=== PATIENT | female | born 1985 | race Caucasian/White ===

== ENCOUNTER 2021-07-02 04:57 | Inpatient (IN) | payer OTHER, SELFPAY ==
[2021-07-02] VITALS (140 sets, daily range): BP systolic 82–118; BP diastolic 45–80; PULSE 25–201; RESP 16–20; TEMP 36.4–36.9; O2SAT 69–100; BMI 32.3
--- NOTE | 2021-07-02 05:32 | LDADM ---
This patient, Michelle Lam, was admitted to Labor/Delivery/Recovery 106 on 07/02/21 at 04:57. Plans for labor, pain management and were discussed with patient. Patient/family oriented to hospital policies and general routines including ID bracelet, bed and alarms, visiting hours, pain management, procedures, bathroom and other care routines, personal items, smoking policy, room service/diet and guest tray routines, security routines, and visiting hours. Patient/Family are encouraged to report perceived risks to care and to ask questions if they do not understand what they are told or what they should do. See OBIX for further documentation.
[2021-07-02 05:44] LABS: Basophils Percent Auto 0.3 % (0.2-1.2); Eosinophils Absolute Auto 0.1 K/mm3 (0-0.3); Eosinophils Percent Auto 0.9 % (0-4.4); Hematocrit 36.4 % (37.0-47.0); Hemoglobin 12.4 g/dL (12.0-15.0); Immature Granulocyte Absolute 0.08 K/mm3 (0.00-0.031); Immature Granulocyte Percent A 0.6 % (0-0.5); Lymphocytes Absolute Auto 2.36 K/mm3 (0.9-3.2); Lymphocytes Percent Auto 19.1 % (18.3-44.2); Mean Corpuscular HGB Conc 34.1 g/dl (32-36); Mean Corpuscular Hemoglobin 32.2 pg (26-34); Mean Corpuscular Volume 94.5 fl (80-100); Mean Platelet Volume 10.2 fl (7.4-10.4); Monocytes Percent Auto 8.2 % (2.6-8.5); Neutrophils Absolute Auto 8.7 K/mm3 (1.3-6.7); Neutrophils Percent Auto 70.9 % (45.5-73.1); Platelet Count Result 223 k/mm3 (150-375); Red Blood Count 3.85 M/mm3 (4.2-5.4); Red Cell Distribution Width 12.3 % (11.5-14.5); White Blood Count 12.3 K/mm3 (4.5-10.0)
[2021-07-02] MEDS: LACTATED RINGERS 1,000 ML 125 ML IV CONT ×2 (05:46→13:23)
[2021-07-02] MEDS: AMPICILLIN 2 GM/NS 100 ML 2 GM/100 ML BAG IVPB (05:47)
[2021-07-02] MEDS: OXYTOCIN 30 UNITS/NS 500 ML 30 UNITS/500 ML BAG IV CONT (05:47)
[2021-07-02 06:24] LABS: Rapid Plasma Reagin Non-Reactive (NonReactive)
--- NOTE | 2021-07-02 08:28 | WPDANESEPP ---
Anes - Eval Pre Procedure Procedure: Labor epidural Date/Time: 07/02/21 08:28 Surgeon: Elidia Preop Diagnosis: Abd pain with contractions Pre Op Diagnosis: IOL Patient Data Age: 36 Gender: F Height: 1.63 m Weight: 85.4 kg Last Vital Signs Temp 98.1 F 07/02/21 05:29 Pulse 94 07/02/21 08:01 Resp 20 07/02/21 05:29 BP 112/78 07/02/21 08:01 Allergies Allergy/AdvReac Type Severity Reaction Status Date / Time No Known Allergies Allergy Verified 06/09/21 15:34 Home Medications Medication Instructions Recorded Confirmed Type cetirizine [Zyrtec] 10 mg PO DAILY 06/09/21 06/09/21 History prenat.vits,artis,apx-[id number]-xwska 1 tablet PO DAILY 06/09/21 06/09/21 History [ #2] Laboratory Tests 07/02/21 07/02/21 07/02/21 05:26 05:26 05:26 WBC 12.3 K/mm3 H K/mm3 (4.5-10.0) RBC 3.85 M/mm3 L M/mm3 (4.2-5.4) Hgb 12.4 g/dL g/dL (12.0-15.0) Hct 36.4 % L % (37.0-47.0) MCV 94.5 fl fl (80-100) MCH 32.2 pg pg (26-34) MCHC 34.1 g/dl g/dl (32-36) RDW 12.3 % % (11.5-14.5) Plt Count 223 k/mm3 k/mm3 (150-375) MPV 10.2 fl fl (7.4-10.4) Immature Gran % (Auto) 0.6 % H % (0-0.5) Neut % (Auto) 70.9 % % (45.5-73.1) Lymph % (Auto) 19.1 % % (18.3-44.2) [place] % (Auto) 8.2 % % (2.6-8.5) Eos % (Auto) 0.9 % % (0-4.4) Baso % (Auto) 0.3 % % (0.2-1.2) Lymph # (Auto) 2.36 K/mm3 K/mm3 (0.9-3.2) [place] # (Auto) 1.0 K/mm3 H K/mm3 (0.1-0.6) Eos # (Auto) 0.1 K/mm3 K/mm3 (0-0.3) Baso # (Auto) 0.0 K/mm3 K/mm3 (0.0-0.1) Abs Immat Gran (auto) 0.08 K/mm3 H K/mm3 (0.00-0.031) Absolute Neuts (auto) 8.7 K/mm3 H K/mm3 (1.3-6.7) Absolute Nucleated RBC 0.0 K/mm3 K/mm3 (0.0-0.012) Nucleated RBC % 0.0 % % (0.0-0.2) RPR Non-reactive (NonReactive) Blood Type A Positive Antibody Screen Negative Patient hx anesthesia problems: none Family hx anesthesia problems: none Results Review: All pre-operative results and documents have been reviewed as part of the pre-operative evaluation. [facility] Past Medical History Medical History No significant past medical history Overweight (BMI 25.0-29.9) and not yet delivered Surgical History Surgical History H/O wisdom tooth extraction Family History Family History Grandparent Hypertension Heart disease Colon cancer Social History Social History Smoking status: Never smoker Second hand tobacco smoke exposure: No Substance use: never Gender identity (if verbalized by the patient): Female Spiritual care concerns: No Exam Day of Procedure 07/02/21 08:28 Patient weight: overweight Airway: Mallampati scale class II Neurological: alert and oriented
--- NOTE | 2021-07-02 08:49 | WPDOBADMIT ---
Obstetrics - Admit Note Admission Note: record reviewed. Additions to the history and/or subsequent changes in the physical findings follow. 36 y/o at 39 2/7 weeks here for scheduled induction of labor. GBS pos. AVSS NST reactive TOCO: contractions every 3-4 min ABD soft, nontender, gravid, vertex EXT nontender Cervix 2-3/50/-2. AROM with meconium-stained fluid. A: IUP at term with favorable cervix. GBS pos. P: Ampicillin, oxytocin. Anticipate . Peds aware of meconium.
[2021-07-02] MEDS: ONDANSETRON INJ 4 MG/2 ML VIAL IV PUSH (10:03)
[2021-07-02] MEDS: AMPICILLIN 1 GM/NS 50 ML 1 GM/50 ML BAG IVPB ×2 (10:03→14:07)
--- NOTE | 2021-07-02 15:37 | P.PCNOB_ITS ---
OB - Delivery Note Procedure Delivery date: 07/02/21 Procedure: Induction of labor with Induction method: per pitocin protocol Delivery augmentation: rupture of membranes and pitocin Delivery monitor: external FHT, external uterine and internal uterine Route of delivery: Laceration Description: Perineal - 2nd Degree Delivery repair: vicryl (3-0) Specimen: Yes (cord blood) Quantitative Blood Loss (ml): 210 Anesthesia type: Epidural Disposition: PACU Complications: None Narrative: 36 y/o at 39 2/7 weeks gestation who presented to the hospital for induction of labor. She received ampicillin for GBS colonization. Oxytocin was administered intravenously. Amniotomy was performed with return of clear fluid. She received an epidural for pain control. Her labor progressed and her cervix dilated completely. She pushed with good effort and delivered the 's head to the perineum, followed by the body. The nose and mouth we re bulb suctioned. After a delay, the cord was clamped and cut. The infant was handed off the field. Cord blood was collected. The placenta delivered spontaneously and was grossly normal in appearance. The usual 3 vessel cord was noted. A second degree midline perineal laceration was sustained. This was reapproximated using 3 0 Vicryl in the usual layered fashion. Excellent hemostasis resulted as did excellent reapproximation of the normal anatomy. Needle and instrument counts were correct. The patient was taken to recovery room in stable condition. The infant went to the nursery in stable condition. I was present and scrubbed for the entire delivery. [place] Baby Date of : 07/02/21 Time of : 15:15 Weeks of gestation at delivery: 39 gender: Male Weight (pounds): 8 Weight (ounces): 7 presentation: vertex position: Left Occiput Anterior Placenta delivery description: Spontaneous and Normal Configuration cord vessel description: 3 Vessels and Delayed Cord Clamping score one minute: 8 score five minutes: 9
--- NOTE | 2021-07-02 15:39 | PM.OBDSVD ---
DS: Admitting Diagnosis Discharge Date 07/06/21 Admitting Diagnosis IUP at 39 2/7 weeks Favorable cervix GBS colonization DS: Discharge Diagnosis Discharge Diagnosis (1) (normal spontaneous vaginal delivery): Code(s): O80 - Encounter for full-term uncomplicated delivery Status: Acute (2) GBS (group B Streptococcus carrier), +RV culture, currently : Code(s): O99.820 - Streptococcus B carrier state complicating Status: Acute OB - DS: Summary OB Procedures : None OB Procedures Intrapartum: Spontaneous Vag Delivery OB Procedures: : None DS: Data Data Completed and Pending Labs on day of discharge: Labs from last 24 hours 07/02/21 07/02/21 07/02/21 05:26 05:26 05:26 WBC 12.3 H RBC 3.85 L Hgb 12.4 Hct 36.4 L MCV 94.5 MCH 32.2 MCHC 34.1 RDW 12.3 Plt Count 223 MPV 10.2 Immature Gran % (Auto) 0.6 H Neut % (Auto) 70.9 Lymph % (Auto) 19.1 [place] % (Auto) 8.2 Eos % (Auto) 0.9 Baso % (Auto) 0.3 Lymph # (Auto) 2.36 [place] # (Auto) 1.0 H Eos # (Auto) 0.1 Baso # (Auto) 0.0 Abs Immat Gran (auto) 0.08 H Absolute Neuts (auto) 8.7 H Absolute Nucleated RBC 0.0 Nucleated RBC % 0.0 RPR Non-reactive Blood Type A Positive Antibody Screen Negative Discharge Plan Discharge Attending physician on discharge: Ankur Brenner Discharging Clinician: Ankur Brenner Patient Disposition: Home, Self-Care Activity: pelvic rest Diet: regular Discharge Instructions: Education: Mom and Baby Guide Given to: Mother Follow-Up: Call your delivering provider's office for an appointment to be seen in: 6 Weeks Mom and baby should come to the [facility] for the follow-up appointment. Appointment Date/Time: Monday, July 05, 2021 at 9:00 a.m. What to expect at your follow-up visit: Blood Pressure Check Physical Assessment Call [phone] if you are unable to keep your appointment time. BREAST CARE: * Wear a snug supportive bra. * For engorgement discomfort: Breast Feeding: * Apply warm moist washcloths * Express milk as needed to relieve engorgement * Wear loose clothing * For sore nipples: * Identify correct latch-on * Apply warm moist washcloths before and after nursing * Air dry nipples after nursing * May apply Lansinoh cream to nipples EPISIOTOMY/PERINEAL CARE: * Until bleeding stops, use your robyn bottle after urinating * Change your pad frequently throughout the day * You may take sitz baths several times a day (fill your bathtub with warm water and soak for 20 minutes.) Do NOT bathe in the water * No tub baths until seen by your physician - You may shower ACTIVITY: * Rest as much as possible. * Do not exercise or lift anything heavier than your baby (such as laundry or other children.) * Avoid stairs or driving as much as possible. * Do not put anything into the vagina. No douching, tampons, or sexual activity until seen by physician. NOTIFY PHYSICIAN IF YOU HAVE ANY QUESTIONS OR IF ANY OF THE FOLLOWING SYMPTOMS OCCUR: * If your perineum becomes red, swollen, or more painful than what you have experienced in the hospital. * If your vaginal bleeding becomes foul smelling. * If your vaginal bleeding becomes more heavy than a period or if your bleeding changes from pink to bright red. However, you may pass an occasional walnut-sized clot once or twice for the first week . * If you experience a sharp, shooting pain in you calves. * If you discover a hard, reddened area on your breast or if you experience flu-like symptoms. DIET: * Eat regular, well-balanced meals. * Drink plenty of fluids daily. If , drink to thirst. Call or return if temperature above 100.4? F, increased abdominal pain, increased vaginal b
[2021-07-02] MEDS: OXYTOCIN 30 UNITS/NS 500 ML 30 UNITS/500 ML BAG 125 UNITS IV CONT (15:52)
[2021-07-02] MEDS: IBUPROFEN 600 MG TABLET PO (20:16)
[2021-07-03] MEDS: IBUPROFEN 600 MG TABLET PO ×3 (03:05→20:30)
[2021-07-03 05:15] LABS: Hematocrit 33.5 % (37.0-47.0); Hemoglobin 11.4 g/dL (12.0-15.0)
[2021-07-03 08:25] VITALS: BP 107/74; PULSE 70; RESP 18; TEMP 36.3; O2SAT 99
[2021-07-03 08:30] VITALS: PULSE 70; RESP 18; O2SAT 99
--- NOTE | 2021-07-03 09:03 | PM.OBPNVD ---
OB - PN: Subj Subjective Date/time seen: 07/03/21 09:03 Narrative: Pain OK. Would like circumcision for son. Would like to go home if possible. OB - PN: Obj Data Labs CBC & Chem 7: 07/03/21 03:16 Labs: Laboratory Results - last 24 hr 07/03/21 03:16 Hgb 11.4 L Hct 33.5 L OB - PN A/P Plan Comments: A: PPD#1, doing well. P: Routine care. Reviewed circ. Home today if OK with peds. Exam Psych: Other: AVSS ABD soft, nontender, fundus firm EXT nontender
[2021-07-03] MEDS: MULTIVIT/MIN/PREN/FOL AC/IRON TABLET 1 TAB PO (09:35)
[2021-07-03] MEDS: DOCUSATE SODIUM 100 MG CAPSULE PO (09:35)
[2021-07-03 12:28] VITALS: BP 101/72; PULSE 66; RESP 16; TEMP 36.9; O2SAT 97
--- NOTE | 2021-07-03 12:53 | WPDANLDPN2 ---
Anes-Prog Note L&D Date/Time: 07/03/21 12:53 Comfortable throughout: labor and delivery Neuraxial method: epidural Epidural/Spinal procedure site: clean & non-tender Neuro status: Neuro function grossly intact. Cardiovascular status: normal Respiratory status: normal Airway patency: baseline Mental status: baseline Post-Op hydration status: normal Vital Signs: Last Vital Signs Temp 36.9 C 07/03/21 12:28 Pulse 66 07/03/21 12:28 Resp 16 07/03/21 12:28 BP 101/72 07/03/21 12:28 Pulse Ox 97 07/03/21 12:28 Pain score (VAS): 0 I/O: Intake & Output 07/02/21 07/03/21 07/03/21 23:59 07:59 15:59 Intake Total 480 Output Total 120 Balance -120 480 Post-procedural complaints: none Patient feedback: Patient satisfied with anesthetic care.
--- NOTE | 2021-07-03 13:00 | PC.NURSE ---
Consult with pt., mother reports is eagerly feeding with without issue. This is mother?s 4th child to breastfeed. Requested mother call out next feeding for observation per policy. Reviewed feeding cues, frequencies, duration of feedings, feeding elimination flow sheet, and signs of adequate intake. Demonstrated stimulation techniques to wake for feeding. Reviewed signs of a correct latch, effective nursing and suck swallow ratio. Nipple care reviewed of lanolin after feedings and warm compresses as needed. Instructed feeding should be initiated three hours from start of last feeding or if feeding cues are noted before. Mother voiced understanding of information shared.
[2021-07-03 20:30] VITALS: BP 109/75; PULSE 75; RESP 16; TEMP 36.8
[2021-07-04 07:45] VITALS: BP 118/77; PULSE 63; RESP 18; TEMP 36.8; O2SAT 100
[2021-07-04 08:30] VITALS: PULSE 75; RESP 16; O2SAT 97
[2021-07-04] MEDS: DOCUSATE SODIUM 100 MG CAPSULE PO (08:32)
[2021-07-04] MEDS: MULTIVIT/MIN/PREN/FOL AC/IRON TABLET 1 TAB PO (08:32)
--- NOTE | 2021-07-04 12:45 | PC.NURSE ---
9911 Breast feeding note; visited with mother; she reports breast feeding is going very well, and she had no concerns or questions for nurse. Reviewed q2-3h and on demand breast feedings, use of feedling log to monitor feedings and wet/dirty diapers per day of age, and care of breasts through engorgement. Mother reports she feels like her milk is starting to transition in. Breast feeding section in Mother Baby Guide flagged for home reference, including LC contact information. Pt voiced understanding of information shared.
[2021-07-05 09:02] VITALS: BP 105/70; PULSE 69; RESP 16; TEMP 36.6; O2SAT 99
== END 2021-07-04 14:12 | disposition home or self-care (01) | DRG 807 ==
LOC: ANHLDR 15:40 → ANHOB2 07-04 09:21 → ANHLDR 07-07 10:28 → ANHOB2 07-07 10:28
PROVIDERS: Admitting Provider Obstetrics & Gynecology; PCP Internal Medicine; Visit Provider Student in an Organized Health Care Education/Training Program
DX: O99.824 Streptococcus B carrier state complicating childbirth (principal); Z37.0 Single live birth; O70.1 Second degree perineal laceration during delivery; O77.0 Labor and delivery complicated by meconium in amniotic fluid; Z3A.39 39 weeks gestation of pregnancy
CPT/HCPCS: 36415; 85014; 85018; 85025; 86592; 86850; 86900; 86901; A9270; J0290; J2405; J2590; J2795; J7120